=== PATIENT | female | born 1985 ===

== ENCOUNTER 2017-09-04 07:44 | Emergency (ER) | payer MEDICAID, OTHER ==
[2017-09-04 07:44] VITALS: BMI 21.4
[2017-09-04 08:06] VITALS: TEMP 99.3
--- NOTE | 2017-09-04 08:06 | ED PDOC ---
Arrival/HPI - General Historian: Patient - History of Present Illness Time/Duration: < week (started sunday) Symptom Onset: Sudden Symptom Course: Improving Activities at Onset: Rest <Yenny Bales - Last Filed: 09/04/17 08:47> <Randy Jaffe - Last Filed: 09/04/17 08:56> - General Chief Complaint: Cough, Cold, Congestion Time Seen by Provider: 09/04/17 07:50 - History of Present Illness Narrative History of Present Illness (Text): 09/04/17 08:25 Patient presents with cough and fevers starting Sunday08/31/17 (four days ago). Patient took tylenol q4h hours initially and took it q8h once fevers were less frequent. Patient states she has a dry cough, temporal headache when she coughs , no changes in appetite, no nausea, vomiting, hemoptysis, diarrhea, constipation, weakness, numbness, tingling 09/04/17 08:34 (Yenny Balse) Past Medical History - Provider Review Nursing Documentation Reviewed: Yes - Travel History Have you recently traveled outside [place] w/in the past 3 mons?: No - Infectious Disease Hx of Infectious Diseases: None - Cardiac Hx Cardiac Disorders: No - Pulmonary Hx Respiratory Disorders: Yes Hx Asthma: Yes - Neurological Hx Neurological Disorder: No - HEENT Hx HEENT Disorder: No - Renal Hx Renal Disorder: No - Endocrine/Metabolic Hx Endocrine Disorders: No - Hematological/Oncological Hx Blood Disorders: No - Integumentary Hx Dermatological Disorder: No - Musculoskeletal/Rheumatological Hx Musculoskeletal Disorders: No - Gastrointestinal Hx Gastritis: Yes - Genitourinary/Gynecological Hx Genitourinary Disorders: No - Psychiatric Hx Psychophysiologic Disorder: No Hx Substance Use: No - Surgical History Hx Section: Yes (in 2008) - Anesthesia Hx Anesthesia: Yes <Yenny Bales - Last Filed: 09/04/17 08:47> Family/Social History - Physician Review Nursing Documentation Reviewed: Yes Family/Social History: Unknown Family HX Smoking Status: Light Smoker < 10 Cigarettes Daily Hx Alcohol Use: No Hx Substance Use: No <Yenny Bales - Last Filed: 09/04/17 08:47> Allergies/Home Meds <Yenny Bales - Last Filed: 09/04/17 08:47> <Randy Jaffe - Last Filed: 09/04/17 08:56> Allergies/Adverse Reactions: Allergies shellfish derived Allergy (Verified 09/04/17 07:56) ANAPHYLAXIS Home Medications: Home Meds Medication Instructions Recorded Confirmed No Known Home Med 09/04/17 09/04/17 Review of Systems - Physician Review All systems were reviewed & negative as marked: Yes - Review of Systems Constitutional: Fevers. absent: Fatigue, Weight Change Eyes: absent: Vision Changes, Photophobia, Eye Pain ENT: Sinus Congestion. absent: Hearing Changes, Tinnitus, Sore Throat, Rhinorrhea, Epistaxis Respiratory: Cough. absent: SOB, Sputum, Wheezing Cardiovascular: absent: Chest Pain, Palpitations, Edema, Calf Pain Gastrointestinal: absent: Abdominal Pain, Stool Changes, Constipation Genitourinary Female: absent: Dysuria, Frequency, Hematuria Musculoskeletal: absent: Arthralgias, Back Pain, Neck Pain Skin: absent: Rash, Pruritis, Skin Lesions Neurological: absent: Headache, Dizziness, Focal Weakness Endocrine: absent: Diaphoresis, Polyuria, Polydipsia Hemo/Lymphatic: absent: Adenopathy, Easy Bleeding, Easy Bruising Psychiatric: absent: Anxiety, Depression, Suicidal Ideation <Eng,Yenny - Last Filed: 09/04/17 08:47> Physical Exam Vital Signs Reviewed: Yes Temperature: Afebrile Blood Pressure: Normal Pulse: Regular Respiratory Rate: Normal Appearance: Positive for: Well-Appearing, Non-Toxic, Comfortable, Ill-Appearing Mental Status: Positive for: Alert and Oriented X 3 - Systems Exam Head: Present: Atraumatic, Normocephalic Pupils: Present: PERRL Extroacular Muscles: Present: EOMI Conjunctiva: Present: Normal Ears: Present: Normal, NORMAL TM Mouth: Present: Moist Mucous Membranes, Normal Lips. No: Dry, Drooling, Trismus Pharnyx: Present: Normal, ERYTHEMA, EXUDATE Nose (External): Present: Atraumatic. No: Abrasion, Contusion, Laceration Nose (Internal): Present: Edematous, Clear Mucous. No: Septal Deviation Neck: Present: Normal Range of Motion, Trachea Midline. No: MIDLINE TENDERNESS , JVD Respiratory/Chest: Present: Clear to Auscultation, Good Air Exchange, Respiratory Distress Cardiovascular: Present: Regular Rate and Rhythm, Normal S1, S2 Abdomen: Present: Normal Bowel Sounds. No: Tenderness, Distention Upper Extremity: Present: Normal Inspection, Normal ROM, NORMAL PULSES, Capillary Refill < 2s Lower Extremity: Present: Normal Inspection, NORMAL PULSES, Normal ROM, Capillary Refill < 2 s. No: Edema Neurological: Present: GCS=15, CN II-XII Intact, Speech Normal, Motor Func Grossly Intact, Normal Cerebellar Funct, Gait Normal Skin: Present: Warm, Dry, Rashes, Normal Color Psychiatric: Present: Alert, Oriented x 3, Normal Insight, Normal Concentration <Yenny Bales - Last Filed: 09/04/17 08:47> Vital Signs Reviewed: Yes <Randy Jaffe - Last Filed: 09/04/17 08:56> Vital Signs Temp Pulse Resp BP Pulse Ox 09/04/17 07:44 99.3 F 99 H 20 108/72 98 Medical Decision Making Re-evaluation Time: 08:31 Reassessment Condition: Re-examined, Unchanged <Yenny Bales - Last Filed: 09/04/17 08:47> <Randy Jaffe - Last Filed: 09/04/17 08:56> ED Course and Treatment: 09/04/17 08:47 Patient explained likely a viral URI. If she doesn't get better in a few days with supportive care, follow up with primary care doctor for evaluation of possible bacterial infection. Patient does not have a fever at time of visit and did not need treatment for fevers at ER visit (Yenny Bales) 09/04/17 08:39 Patient Seen With Resident: In agreement with resident note which contains more details about the patient. Patient was seen and evaluated with resident. Came up with plan and treatment together. 31 year old female, with no significant past medical history, presents to the emergency department complaining of fever and cough that began 4 days ago. 09/04/17 08:55 Seen and examined with the resident. Our history and physical exam reveals a young woman with a 4 day history of URI symptoms with nasal congestion. No dyspnea. Mild nonproductive cough. Subjective fever. She does not appear ill or toxic. (Randy Jaffe) <Yenny Bales - Last Filed: 09/04/17 08:47> - Scribe Statement The provider has reviewed the documentation as recorded by the Scribe <Randy Jaffe - Last Filed: 09/04/17 08:56> - Scribe Statement Aroldo Child Provider Scribe Attestation: All medical record entries made by the Scribe were at my direction and personally dictated by me. I have reviewed the chart and agree that the record accurately reflects my personal performance of the history, physical exam, medical decision making, and the department course for this patient. I have also personally directed, reviewed, and agree with the discharge instructions and disposition. (Randy Jaffe) Disposition/Present on Arrival - Present on Arrival Any Indicators Present on Arrival: No History of DVT/PE: No History of Uncontrolled Diabetes: No Urinary Catheter: No History Surgical Site Infection Following: None - Disposition Have Diagnosis and Disposition been Completed?: Yes Disposition Time: 08:34 Patient Plan: Discharge <Yenny Bales - Last Filed: 09/04/17 08:47> <Randy Jaffe - Last Filed: 09/04/17 08:56> - Disposition Diagnosis: Viral URI with cough Disposition: HOME/ ROUTINE Patient Problems: Current Active Problems Problem Status Onset Viral URI with cough Acute Condition: GOOD Additional Instructions: continue supportive care (rest, hydration) follow up with primary care doctor as needed. return to ER if symptoms worsen, fevers, chills, nausea vomiting, diarrhea Referrals: Bola Ronquillo Jr., MD [Primary Care Provider] - Follow up with primary Forms: [facility] ([place]), WORK NOTE
[2017-09-04 08:59] VITALS: BP 108/52; PULSE 82; RESP 16; O2SAT 100
== END 2017-09-04 08:59 | disposition home or self-care (01) ==
LOC: ED 07:44
DX: J06.9 Acute upper respiratory infection, unspecified (principal); R05 Cough; F17.210 Nicotine dependence, cigarettes, uncomplicated

== ENCOUNTER 2017-12-27 19:22 | Emergency (ER) | payer SELFPAY ==
[2017-12-27 19:23] VITALS: BMI 21.4
[2017-12-27 19:42] VITALS: RESP 18
[2017-12-27] MEDS ORDERED: Sodium Chloride 0.9% 1,000 ML IV STA (20:20)
[2017-12-27 20:45] LABS: BASO # 0.04 K/mm3 (0.0-2.0); BASO % 0.5 % (0.0-3.0); EOS # 0.1 (0.0-0.7); EOS % 1.7 % (1.5-5.0); GRAN # 5.05 (1.4-6.5); GRAN % 62.8 % (50.0-68.0); HEMOGLOBIN 14.3 g/dL (12.0-16.0); LYMPH % 25.2 % (22.0-35.0); MEAN CELL VOLUME 81.8 fl (80.0-105.0); MEAN CORPUSCULAR HGB CONC 34.2 g/dl (31.0-37.0); MEAN PLATELET VOLUME 9.3 fl (7.0-11.0); MONO # 0.8 (0.1-0.6); MONO % 9.8 % (1.0-6.0); RBC 5.11 10^6/uL (3.5-6.1); RED CELL DISTRIBUTION WIDTH 15.1 % (11.5-14.5); WHITE BLOOD COUNT 8.1 10^3/ul (4.5-11.0)
[2017-12-27 20:50] LABS: URINE BILIRUBIN NEGATIVE (NEGATIVE); URINE BLOOD NEGATIVE (NEGATIVE); URINE GLUCOSE (UA) NEGATIVE (NEGATIVE); URINE LEUKOCYTE ESTERASE NEGATIVE Leu/uL (NEGATIVE); URINE PROTEIN TRACE mg/dL (<30 mg/dL); URINE UROBILINOGEN 0.2 E.U./dL (<1 E.U./dL)
[2017-12-27 20:51] LABS: URINE APPEARANCE CLEAR (CLEAR); URINE COLOR YELLOW (YELLOW)
[2017-12-27 20:53] LABS: ALB/GLOB RATIO 1.4 (1.1-1.8); ALBUMIN 4.9 g/dL (3.0-4.8); ALT/SGPT 32 U/L (7-56); AST/SGOT 31 U/L (14-36); BLOOD UREA NITROGEN 14 mg/dL (7-21); CALCIUM 9.9 mg/dL (8.4-10.5); GFR AFRICAN-AMERICAN > 60; GFR NON-AFRICAN AMERICAN > 60; LIPASE 27 U/L (23-300)
[2017-12-27 20:53] LABS: URINE RBC 0 - 2 /hpf (0-2); URINE WBC 0 - 2 /hpf (0-6)
[2017-12-27 20:54] LABS: URINE BACTERIA MANY (NEG)
--- NOTE | 2017-12-27 21:18 | ED PDOC ---
Arrival/HPI - General Chief Complaint: Abdominal Pain Time Seen by Provider: 12/27/17 19:48 Historian: Patient - History of Present Illness Narrative History of Present Illness (Text): 12/27/17 21:13 32yr old female presents today with suprapubic abdominal pain since yesterday and 3 days of intermittent vomiting. no chest pain or sob. no diarrhea. no fever /chills. pt denies back pain. no urinary symptoms. no vaginal bleeding or vaginal discharge. pts LMP was december 11. pt describes the pain as crampy. no other complaints. Past Medical History - Provider Review Nursing Documentation Reviewed: Yes - Travel History Have you recently traveled outside [place] w/in the past 3 mons?: No - Infectious Disease Hx of Infectious Diseases: None - Reproductive Menopause: No - Cardiac Hx Cardiac Disorders: No - Pulmonary Hx Respiratory Disorders: Yes Hx Asthma: Yes - Neurological Hx Neurological Disorder: No - HEENT Hx HEENT Disorder: No - Renal Hx Renal Disorder: No - Endocrine/Metabolic Hx Endocrine Disorders: No - Hematological/Oncological Hx Blood Disorders: No - Integumentary Hx Dermatological Disorder: No - Musculoskeletal/Rheumatological Hx Musculoskeletal Disorders: No - Gastrointestinal Hx Gastritis: Yes - Genitourinary/Gynecological Hx Genitourinary Disorders: No - Psychiatric Hx Psychophysiologic Disorder: No Hx Substance Use: No - Surgical History Hx Section: Yes (in 2008) - Anesthesia Hx Anesthesia: Yes Family/Social History - Physician Review Nursing Documentation Reviewed: Yes Family/Social History: Unknown Family HX Smoking Status: Light Smoker < 10 Cigarettes Daily Hx Alcohol Use: No Hx Substance Use: No Allergies/Home Meds Allergies/Adverse Reactions: Allergies shellfish derived Allergy (Verified 09/04/17 07:56) ANAPHYLAXIS Review of Systems - Review of Systems Constitutional: absent: Fatigue, Fevers Respiratory: absent: SOB, Cough Cardiovascular: absent: Chest Pain, Palpitations Gastrointestinal: Abdominal Pain, Nausea, Vomiting. absent: Constipation, Diarrhea Genitourinary Female: absent: Dysuria, Frequency, Hematuria, Vaginal Bleeding, Vaginal Discharge Musculoskeletal: absent: Arthralgias, Back Pain, Neck Pain Skin: absent: Rash, Pruritis Neurological: absent: Headache, Dizziness Psychiatric: absent: Anxiety, Depression Physical Exam Vital Signs Reviewed: Yes Vital Signs Temp Pulse Resp BP Pulse Ox 12/27/17 21:31 90 18 105/52 L 100 12/27/17 19:39 98.7 F 89 18 123/83 99 Temperature: Afebrile Blood Pressure: Normal Pulse: Regular Respiratory Rate: Normal Appearance: Positive for: Well-Appearing, Non-Toxic, Comfortable Pain Distress: None Mental Status: Positive for: Alert and Oriented X 3 - Systems Exam Head: Present: Atraumatic Mouth: Present: Moist Mucous Membranes Neck: Present: Normal Range of Motion Respiratory/Chest: Present: Clear to Auscultation, Good Air Exchange. No: Respiratory Distress, Accessory Muscle Use Cardiovascular: Present: Regular Rate and Rhythm, Normal S1, S2. No: Murmurs Abdomen: Present: Tenderness (+ suprapubic tenderness). No: Distention, Peritoneal Signs, Rebound, Guarding Genitourinary/Pelvic Exam: Present: Normal External Genitalia, Cervical os Closed, Other (chaparoned by DRISS Hatfield). No: Vaginal Discharge, Vaginal Bleeding, Vaginal Lesions, Adenexal Tenderness, Adenexal Mass, Cervical Motion Tendernes, Odor Back: Present: Normal Inspection. No: CVA Tenderness, Midline Tenderness, Paraspinal Tenderness Upper Extremity: Present: Normal ROM Lower Extremity: Present: Normal ROM Neurological: Present: GCS=15, Speech Normal Skin: Present: Warm, Dry, Normal Color. No: Rashes Psychiatric: Present: Alert, Oriented x 3 Medical Decision Making ED Course and Treatment: 12/27/17 21:19 Patient is nontoxic well appearing with stable vital signs presenting with lower abdominal pain CBC: wnl CMP: wnl Lipase: wnl Urinalysis wnl Ultrasound: FINDINGS: Uterus/cervix: Unremarkable measuring 9.7 x 5.4 x 6.1 cm. Endometrial thickness measures 1.3 cm. No myometrial mass. Right ovary: Unremarkable measuring 2.5 x 1.9 x 2.9 cm. There is a dominant follicle in the right ovary measuring 1.4 x 0.9 x 1.2 cm. The left ovary measures 1.9 x 1.9 x 2.2 cm. No mass. Normal blood flow. Left ovary: The left ovary measures 1.9 x 1.9 x 2.2 cm and is unremarkable. No mass. Normal blood flow. Free fluid: There There is a very small amount of physiologic free pelvic fluid present. Bladder: Empty bladder which cannot be evaluated with this probe. IMPRESSION: Small physiologic pelvic free fluid. No evidence of ovarian torsion. CAT scan: FINDINGS: Lung bases: Unremarkable. No mass. No consolidation. ABDOMEN: Liver: The liver is within normal limits for this noncontrast study. Gallbladder and bile ducts: Unremarkable. No calcified stones. No ductal dilation. Pancreas: Unremarkable. No ductal dilation. Spleen: Unremarkable. No splenomegaly. Adrenals: Unremarkable. No mass. Kidneys and ureters: Unremarkable. No obstructing stones. No hydronephrosis. Stomach and bowel: Unremarkable. No obstruction. No mucosal thickening. PELVIS: Appendix: No findings to suggest acute appendicitis. Normal appendix. Bladder: Unremarkable. No stones. Reproductive: Unremarkable as visualized. ABDOMEN and PELVIS: Intraperitoneal space: Unremarkable. No free air. No significant fluid collection. Bones/joints: No acute fracture. No dislocation. Soft tissues: Unremarkable. Vasculature: Unremarkable. No abdominal aortic aneurysm. Lymph nodes: Unremarkable. No enlarged lymph nodes. IMPRESSION: Unremarkable abdomen and pelvis CT. Gc and chylamdia cultures pending. Patient reassessment: pt is non toxic well appearing; no distress. stable vitals. Discussed all results with patient in depth. advised f/u with contract accountant and PMD and GI specialist; advised immediate return if symptoms worsen,persist or if new symptoms Patient verbalizes understanding of discharge instructions and need for immediate followup. all aspects of this case were discussed the attending of record. Impression: Abdominal pain, uti Keflex; 1 capsule twice daily x 7 days. Motrin every 6 hours as needed for pain Follow up with primary care physician within the next 2 days Follow up with the GI specialist within the next 2 days Follow up with the ADULT EDUCATION MANAGER within the next 2 days Return immediately if symptoms worsen persist or if new symptoms develop: High fevers, increasing pain, vomiting, diarrhea or any other concerning symptoms develop 12/27/17 23:32 Reassessment Condition: Re-examined, Improved - Lab Interpretations Lab Results: 12/27/17 20:39 12/27/17 20:39 Lab Results 12/27/17 20:39: WBC 8.1, RBC 5.11, Hgb 14.3, Hct 41.8, MCV 81.8, MCH 28.0, MCHC 34.2, RDW 15.1 H, Plt Count 305, MPV 9.3, Gran % 62.8, Lymph % (Auto) 25.2, Todd % (Auto) 9.8 H, Eos % (Auto) 1.7, Baso % (Auto) 0.5, Gran # 5.05, Lymph # ( Auto) 2.0, Todd # (Auto) 0.8 H, Eos # (Auto) 0.1, Baso # (Auto) 0.04 12/27/17 20:39: Sodium 142, Potassium 4.2, Chloride 103, Carbon Dioxide 24, Anion Gap 19, BUN 14, Creatinine 0.5 L, Est GFR ( Amer) > 60, Est GFR ( Non-Af Amer) > 60, Random Glucose 94, Calcium 9.9, Total Bilirubin 0.7, AST 31, ALT 32, Alkaline Phosphatase 77, Total Protein 8.4 H, Albumin 4.9 H, Globulin 3.5, Albumin/Globulin Ratio 1.4, Lipase 27 12/27/17 20:10: Urine Color Yellow, Urine Appearance Clear, Urine pH 6.0, Ur Specific Bradner 1.025, Urine Protein Trace H, Urine Glucose (UA) Negative, Urine Ketones 15 H, Urine Blood Negative, Urine Nitrate Negative, Urine Bilirubin Negative, Urine Urobilinogen 0.2, Ur Leukocyte Esterase Negative, Urine RBC 0 - 2, Urine WBC 0 - 2, Ur Epithelial Cells 6 - 8, Urine Bacteria Many - RAD Interpretation Radiology Orders: 12/27/17 20:50 TRANSVAGINAL [US] Stat 12/27/17 22:26 ABD & PELVIS W/O PO OR IV CONT [CT] Stat - Medication Orders Current Medication Orders: Discontinued Medications Sodium Chloride (Sodium Chloride 0.9%) 1,000 mls @ 999 mls/hr IV .Q1H1M STA Stop: 12/27/17 21:20 Last Admin: 12/27/17 20:40 Dose: 999 mls/hr eMAR Start Stop Document 12/27/17 20:40 LIU (Rec: 12/27/17 20:47 LIU [id number]) Intravenous Solution Start Date 12/27/17 Start Time 20:40 Disposition/Present on Arrival - Present on Arrival Any Indicators Present on Arrival: No History of DVT/PE: No History of Uncontrolled Diabetes: No Urinary Catheter: No History of Decub. Ulcer: No History Surgical Site Infection Following: None - Disposition Have Diagnosis and Disposition been Completed?: Yes Diagnosis: Abdominal pain Disposition: HOME/ ROUTINE Disposition Time: 22:48 Patient Plan: Other (AMA) Patient Problems: Current Active Problems Problem Status Onset Abdominal pain Acute Condition: FAIR Discharge Instructions (ExitCare): Acute Abdomen (Belly Pain), Adult (DC) Additional Instructions: Keflex; 1 capsule twice daily x7 days Motrin every 6 hours as needed for pain Follow up with primary care physician within the next 2 days Follow up with the GI specialist within the next 2 days Follow up with the ADULT EDUCATION MANAGER within the next 2 days Return immediately if symptoms worsen persist or if new symptoms develop: High fevers, increasing pain, vomiting, diarrhea or any other concerning symptoms develop Prescriptions: Cephalexin [Keflex] 500 mg PO BID #14 capsule Referrals: Bola Ronquillo Jr., MD [Primary Care Provider] - Follow up with primary Nicolas Andujar MD [Staff Provider] - Follow up with primary Bryson Torrez MD [Medical Doctor] - Follow up with primary Forms: [facility] (Japanese), WORK NOTE
[2017-12-27 21:32] VITALS: O2SAT 100
--- NOTE | 2017-12-27 23:18 | CT ---
EXAM: CT Abdomen and Pelvis Without Intravenous Contrast CLINICAL HISTORY: 32 years old, female; Pain; Abdominal pain; Prior surgery; Surgery type: TECHNIQUE: Axial computed tomography images of the abdomen and pelvis without intravenous contrast. All CT scans at this facility use one or more dose reduction techniques, viz.: automated exposure control; ma/kV adjustment per patient size (including targeted exams where dose is matched to indication; i.e. head); or iterative reconstruction technique. Coronal and sagittal reformatted images were created and reviewed. COMPARISON: CT - ABD PELVIS W/O PO OR IV CONT 2016-04-15 12:25 FINDINGS: Lung bases: Unremarkable. No mass. No consolidation. ABDOMEN: Liver: The liver is within normal limits for this noncontrast study. Gallbladder and bile ducts: Unremarkable. No calcified stones. No ductal dilation. Pancreas: Unremarkable. No ductal dilation. Spleen: Unremarkable. No splenomegaly. Adrenals: Unremarkable. No mass. Kidneys and ureters: Unremarkable. No obstructing stones. No hydronephrosis. Stomach and bowel: Unremarkable. No obstruction. No mucosal thickening. PELVIS: Appendix: No findings to suggest acute appendicitis. Normal appendix. Bladder: Unremarkable. No stones. Reproductive: Unremarkable as visualized. ABDOMEN and PELVIS: Intraperitoneal space: Unremarkable. No free air. No significant fluid collection. Bones/joints: No acute fracture. No dislocation. Soft tissues: Unremarkable. Vasculature: Unremarkable. No abdominal aortic aneurysm. Lymph nodes: Unremarkable. No enlarged lymph nodes. IMPRESSION: Unremarkable abdomen and pelvis CT.
--- NOTE | 2017-12-27 23:23 | US ---
EXAM: US Pelvis, Transvaginal CLINICAL HISTORY: 32 years old, female; Pain; Pelvic pain TECHNIQUE: Real-time transvaginal pelvic ultrasound (complete) with image documentation. Transvaginal imaging was used for better evaluation of the endometrium and adnexa. COMPARISON: US - TRANSVAGINAL 2016-07-04 07:31 FINDINGS: Uterus/cervix: Unremarkable measuring 9.7 x 5.4 x 6.1 cm. Endometrial thickness measures 1.3 cm. No myometrial mass. Right ovary: Unremarkable measuring 2.5 x 1.9 x 2.9 cm. There is a dominant follicle in the right ovary measuring 1.4 x 0.9 x 1.2 cm. The left ovary measures 1.9 x 1.9 x 2.2 cm. No mass. Normal blood flow. Left ovary: The left ovary measures 1.9 x 1.9 x 2.2 cm and is unremarkable. No mass. Normal blood flow. Free fluid: There There is a very small amount of physiologic free pelvic fluid present. Bladder: Empty bladder which cannot be evaluated with this probe. IMPRESSION: Small physiologic pelvic free fluid. No evidence of ovarian torsion.
[2017-12-27 23:48] VITALS: BP 116/49; PULSE 89; TEMP 98.5
== END 2017-12-27 23:40 | disposition home or self-care (01) ==
LOC: ED 19:22
DX: R10.9 Unspecified abdominal pain (principal)
CPT/HCPCS: 74176; 76830; 80053; 81001; 83690; 85025; 87086; 87491; 87591; 99284; J7030

== ENCOUNTER 2018-02-25 23:24 | Emergency (ER) | payer SELFPAY ==
[2018-02-25 23:42] VITALS: BMI 23.8
[2018-02-26] MEDS ORDERED: Naproxen 550 mg Tab PO STA (01:36)
--- NOTE | 2018-02-26 01:37 | ED PDOC ---
Arrival/HPI - General Chief Complaint: Finger,Hand,&Wrist Time Seen by Provider: 02/25/18 23:44 Historian: Patient - History of Present Illness Narrative History of Present Illness (Text): 02/26/18 01:33 32 yo F reports injury to the R 3rd digit 2 weeks ago, since then has had continued pain and swelling with difficulty with ROM of the finger. Denies any numbness, or any other injury. Past Medical History - Infectious Disease Hx of Infectious Diseases: None - Cardiac Hx Cardiac Disorders: No - Pulmonary Hx Respiratory Disorders: Yes Hx Asthma: Yes - Neurological Hx Neurological Disorder: No - HEENT Hx HEENT Disorder: No - Renal Hx Renal Disorder: No - Endocrine/Metabolic Hx Endocrine Disorders: No - Hematological/Oncological Hx Blood Disorders: No - Integumentary Hx Dermatological Disorder: No - Musculoskeletal/Rheumatological Hx Musculoskeletal Disorders: No - Gastrointestinal Hx Gastritis: Yes - Genitourinary/Gynecological Hx Genitourinary Disorders: No - Psychiatric Hx Psychophysiologic Disorder: No Hx Substance Use: No - Surgical History Hx Section: Yes (in 2008) - Anesthesia Hx Anesthesia: Yes Family/Social History Family/Social History: No Known Family HX Smoking Status: Light Smoker < 10 Cigarettes Daily Hx Alcohol Use: No Hx Substance Use: No Allergies/Home Meds Allergies/Adverse Reactions: Allergies shellfish derived Allergy (Verified 02/25/18 23:52) ANAPHYLAXIS Review of Systems - Review of Systems Constitutional: absent: Fatigue, Weight Change, Fevers Musculoskeletal: Arthralgias. absent: Back Pain, Neck Pain Skin: absent: Rash, Pruritis, Skin Lesions Physical Exam Temperature: Afebrile Blood Pressure: Normal Pulse: Regular Respiratory Rate: Normal Appearance: Positive for: Well-Appearing, Non-Toxic, Comfortable Pain Distress: None Mental Status: Positive for: Alert and Oriented X 3 - Systems Exam Upper Extremity: Present: Normal ROM, NORMAL PULSES, Neurovascularly Intact, Capillary Refill < 2s, Norm 2-Pt Discrimination, Other (R 3rd digit : + tenderness and edema to the proximal phalaxnx, pt unable to fully extend or flex digit at the DIP. ). No: Edema, Tenderness, Swelling, Erythema, Temperature Abnormalties Medical Decision Making ED Course and Treatment: 02/26/18 01:35 Plan : - XR R 3rd digit - Naprosyn PO XR R 3rd digit: +fracture of mid phalanx, no dislocation, as read by PA. X-ray results discussed with the patient in great detail. Orthoglass finger splint applied. Neurovascular intact post splint application. Patient instructed to follow-up with orthopedic referral provided in 1-2 days without fail. Advised to take medication as prescribed. Rest, ice and elevate the joint. Return to the emergency room at any time for any new or worsening symptoms. Patient states she fully agrees with and understands discharge instructions. States that she agrees with the plan and disposition. Verbalized and repeated discharge instructions and plan. I have given the patient opportunity to ask any additional questions. - RAD Interpretation Radiology Orders: 02/25/18 23:44 HAND RIGHT 3RD DIGIT (FINGER) [RAD] Stat - Medication Orders Current Medication Orders: Discontinued Medications Naproxen (Anaprox Ds) 550 mg PO ONCE STA Stop: 02/26/18 01:37 - PA / RADIATION CONTROL WORKER / Resident Statement / has reviewed & agrees with the documentation as recorded. Disposition/Present on Arrival - Present on Arrival Any Indicators Present on Arrival: No History of DVT/PE: No History of Uncontrolled Diabetes: No Urinary Catheter: No History of Decub. Ulcer: No History Surgical Site Infection Following: None - Disposition Have Diagnosis and Disposition been Completed?: Yes Diagnosis: Finger fracture, right Disposition: HOME/ ROUTINE Disposition Time: 02:00 Patient Plan: Discharge Condition: STABLE Discharge Instructions (ExitCare): Finger Fracture (DC) Additional Instructions: Thank you for letting us take care of you today. You were treated for R 3rd digit injury. The emergency medical care you received today was directed at your acute symptoms. If you were prescribed any medication, please fill it and take as directed. It may take several days for your symptoms to resolve. Return to the Emergency Department if your symptoms worsen, do not improve, or if you have any other problems. Please call one of the physicians/clinics you have been referred to that are listed on the Patient Visit Information form that is included in your discharge packet. Bring any paperwork you were given at discharge with you along with any medications you are taking to your follow up visit. Our treatment cannot replace ongoing medical care by a primary care provider (PCP) outside of the emergency department. Thank you for allowing the [facility] team to be part of your care today. If you had an X-Ray : A Radiologist will review the ED reading if any change in treatment is needed we will contact you. Prescriptions: Naproxen 500 mg PO BID PRN #20 tablet PRN Reason: Pain, Moderate (4-7) Referrals: Isreal Suarez DO [Staff Provider] - Follow up with primary Forms: [facility] ([place]ori), WORK NOTE
[2018-02-26 02:50] VITALS: BP 121/69; PULSE 81; RESP 16; TEMP 97.9; O2SAT 99
--- NOTE | 2018-02-26 07:53 | RAD ---
Date of service: 02/26/2018 PROCEDURE: Right middle finger radiographs. HISTORY: pain COMPARISON: None. TECHNIQUE: AP radiograph of the right hand, as well as spot oblique and lateral images of right middle finger were obtained. FINDINGS: RIGHT MIDDLE FINGER: An oblique complete fracture -3rd middle phalanx with 1 mm distraction the fracture fragment ends is present. No apical angulation deformity. No intra-articular joint extension. No dislocation. JOINTS: Normal. SOFT TISSUES: Mild soft tissue swelling. OTHER FINDINGS: No radiopaque foreign body appreciated IMPRESSION: Complete fracture -not significantly displaced -as above
== END 2018-02-26 02:02 | disposition home or self-care (01) ==
LOC: ED 23:24
DX: S62.602A Fracture of unspecified phalanx of right middle finger, initial encounter for closed fracture (principal); X58.XXXA Exposure to other specified factors, initial encounter; Y92.9 Unspecified place or not applicable

== ENCOUNTER 2018-03-23 11:45 | Emergency (ER) | payer OTHER ==
[2018-03-23 11:46] VITALS: BMI 23.8
[2018-03-23 12:00] VITALS: RESP 18; TEMP 99; O2SAT 99
[2018-03-23 12:51] LABS: BASO # 0.04 K/mm3 (0.0-2.0); BASO % 0.6 % (0.0-3.0); EOS # 0.2 (0.0-0.7); EOS % 2.9 % (1.5-5.0); GRAN # 4.62 (1.4-6.5); GRAN % 66.6 % (50.0-68.0); LYMPH # 1.7 (1.2-3.4); LYMPH % 23.8 % (22.0-35.0); MEAN CELL VOLUME 82.8 fl (80.0-105.0); MEAN CORPUSCULAR HEMOGLOBIN 27.1 pg (25.0-35.0); MEAN CORPUSCULAR HGB CONC 32.7 g/dl (31.0-37.0); MEAN PLATELET VOLUME 9.7 fl (7.0-11.0); MONO # 0.4 (0.1-0.6); MONO % 6.1 % (1.0-6.0); RBC 4.43 10^6/uL (3.5-6.1); RED CELL DISTRIBUTION WIDTH 14.2 % (11.5-14.5); URINE BILIRUBIN NEGATIVE (NEGATIVE); URINE BLOOD TRACE-INTACT (NEGATIVE); URINE GLUCOSE (UA) NEGATIVE (NEGATIVE); URINE LEUKOCYTE ESTERASE NEGATIVE Leu/uL (NEGATIVE); URINE PROTEIN NEGATIVE mg/dL (<30 mg/dL); URINE UROBILINOGEN 0.2 E.U./dL (<1 E.U./dL); WHITE BLOOD COUNT 6.9 10^3/ul (4.5-11.0)
[2018-03-23 12:52] LABS: URINE COLOR YELLOW (YELLOW)
[2018-03-23 12:53] LABS: URINE APPEARANCE SLIGHT-CLOUDY (CLEAR)
--- NOTE | 2018-03-23 12:57 | ED PDOC ---
Arrival/HPI - General Chief Complaint: Abdominal Pain Time Seen by Provider: 03/23/18 12:10 Historian: Patient - History of Present Illness Narrative History of Present Illness (Text): 03/23/18 12:55 32-year-old female presents today with lower abdominal cramping since today. She denies vaginal bleeding or vaginal discharge. She denies nausea vomiting diarrhea or constipation. She denies chest pain or shortness of breath. Patient states her last menstrual period was February 08 and recently she found out that she was . She is complaining of slight lower back pain. Denies dysuria or urinary frequency. Denies dizziness or weakness. No other complaints Past Medical History - Provider Review Nursing Documentation Reviewed: Yes - Travel History Have you recently traveled outside [place] w/in the past 3 mons?: No - Infectious Disease Hx of Infectious Diseases: None - Reproductive Menopause: No - Cardiac Hx Cardiac Disorders: No - Pulmonary Hx Respiratory Disorders: Yes Hx Asthma: Yes - Neurological Hx Neurological Disorder: No - HEENT Hx HEENT Disorder: No - Renal Hx Renal Disorder: No - Endocrine/Metabolic Hx Endocrine Disorders: No - Hematological/Oncological Hx Blood Disorders: No - Integumentary Hx Dermatological Disorder: No - Musculoskeletal/Rheumatological Hx Musculoskeletal Disorders: No - Gastrointestinal Hx Gastritis: Yes - Genitourinary/Gynecological Hx Genitourinary Disorders: No - Psychiatric Hx Psychophysiologic Disorder: No Hx Substance Use: No - Surgical History Hx Section: Yes (in 2008) - Anesthesia Hx Anesthesia: Yes Family/Social History - Physician Review Nursing Documentation Reviewed: Yes Family/Social History: Unknown Family HX Smoking Status: Light Smoker < 10 Cigarettes Daily Hx Alcohol Use: No Hx Substance Use: No Allergies/Home Meds Allergies/Adverse Reactions: Allergies shellfish derived Allergy (Verified 03/23/18 12:00) ANAPHYLAXIS Home Medications: Home Meds Medication Instructions Recorded Confirmed No Known Home Med 03/23/18 03/23/18 Review of Systems - Review of Systems Constitutional: absent: Fatigue, Fevers Respiratory: absent: SOB, Cough Cardiovascular: absent: Chest Pain, Palpitations Gastrointestinal: Abdominal Pain. absent: Constipation, Diarrhea, Nausea, Vomiting Genitourinary Female: absent: Dysuria, Frequency, Hematuria, Vaginal Bleeding, Vaginal Discharge Musculoskeletal: Back Pain. absent: Arthralgias, Neck Pain Skin: absent: Rash, Pruritis Neurological: absent: Headache, Dizziness Psychiatric: absent: Anxiety, Depression Physical Exam Vital Signs Reviewed: Yes Vital Signs Temp Pulse Resp BP Pulse Ox 03/23/18 11:56 99 F 80 18 107/64 99 Temperature: Afebrile Blood Pressure: Normal Pulse: Regular Respiratory Rate: Normal Appearance: Positive for: Well-Appearing, Non-Toxic, Comfortable Pain Distress: None Mental Status: Positive for: Alert and Oriented X 3 - Systems Exam Head: Present: Atraumatic Mouth: Present: Moist Mucous Membranes Neck: Present: Normal Range of Motion Respiratory/Chest: Present: Clear to Auscultation, Good Air Exchange. No: Respiratory Distress, Accessory Muscle Use Cardiovascular: Present: Regular Rate and Rhythm, Normal S1, S2. No: Murmurs Abdomen: No: Tenderness, Distention, Peritoneal Signs, Rebound, Guarding Genitourinary/Pelvic Exam: Present: Normal External Genitalia, Cervical os Closed, Other (chaparone by BETO romeo). No: Vaginal Discharge, Vaginal Bleeding, Vaginal Lesions, Adenexal Tenderness, Adenexal Mass, Cervical Motion Tendernes, Odor Back: Present: Normal Inspection. No: CVA Tenderness, Midline Tenderness, Paraspinal Tenderness Upper Extremity: Present: Normal ROM Lower Extremity: Present: Normal ROM. No: Edema Neurological: Present: GCS=15, Speech Normal Skin: Present: Warm, Dry, Normal Color. No: Rashes Psychiatric: Present: Alert, Oriented x 3 Medical Decision Making ED Course and Treatment: 03/23/18 12:57 Patient is nontoxic well appearing in no distress. vital signs are stable. CBC: wnl CMP: wnl Beta hCG: TYPE AND SCREEN: Urinalysis:wnl Ultrasound: FINDINGS: UTERUS: Single Live intrauterine gestation. Gestational sac diameter measures 0.74 cm too small to characterize gestational age. Yolk sac and pole are not visualized. [place]-gestational hemorrhage: None. Uterus measures 8.6 x 5.3 x 6.5 cm. No mass CERVIX: Long and closed. No cervical abnormality seen. RIGHT OVARY: Measures 2.1 x 1.1 x 1.1 cm. No mass. Normal flow. LEFT OVARY: Measures 3.4 x 1.9 x 2.4 cm. No mass. Normal flow. There is a 0.7 x 0.6 x 0.7 cm simple cyst and 1.6 x 1.2 x 0.8 cm simple cyst. FREE FLUID: None. OTHER FINDINGS: None. IMPRESSION: Single intrauterine gestational sac too small to characterize gestational age. Yolk sac and pole are not visualized on the current examination. Clinical follow-up and follow-up imaging is recommended to assess viable . Discussed all the results the patient. pt with LMP february 08. which would place the patient about 5 weeks . advised patient that she will need to monitor beta and f/u US. advised patient of possible early vs miscarriage. stressed importance of close f/u. advised f/u with the clearing distribution clerk within the next 2 days. advised immediate return if symptoms worsen,persist or if new symptoms develop. Patient verbalizes understanding of discharge instructions and need for immediate followup. all aspects of this case were discussed the attending of record. Impression: threatened Tylenol every 4 hours as needed for pain Increase fluids Followup with the veterinary pharmacologist within the next 2 days Return immediately if symptoms worsen persist or if new symptoms develop: High fevers, heavy bleeding, severe abdominal pain, vomiting, diarrhea, dizziness or weakness or any other concerning symptoms develop. continue to take vitamins daily - Lab Interpretations Lab Results: 03/23/18 12:40 03/23/18 12:40 Lab Results 03/23/18 13:40: Blood Type Confirm O POSITIVE 03/23/18 13:00: Blood Type O POSITIVE, Antibody Screen Negative, BBK History Checked No verified bt 03/23/18 12:40: WBC 6.9, RBC 4.43, Hgb 12.0 D, Hct 36.7, MCV 82.8, MCH 27.1, MCHC 32.7, RDW 14.2, Plt Count 292, MPV 9.7, Gran % 66.6, Lymph % (Auto) 23.8, [place] % (Auto) 6.1 H, Eos % (Auto) 2.9, Baso % (Auto) 0.6, Gran # 4.62, Lymph # ( Auto) 1.7, [place] # (Auto) 0.4, Eos # (Auto) 0.2, Baso # (Auto) 0.04 03/23/18 12:40: Beta HCG, Quant 18527.00 H 03/23/18 12:40: Sodium 139, Potassium 4.0, Chloride 104, Carbon Dioxide 24, Anion Gap 15, BUN 15, Creatinine 0.6 L, Est GFR ( Amer) > 60, Est GFR ( Non-Af Amer) > 60, Random Glucose 116 H, Calcium 8.7, Total Bilirubin 0.4, AST 24, ALT 19, Alkaline Phosphatase 70, Total Protein 7.0, Albumin 4.0, Globulin 3.0, Albumin/Globulin Ratio 1.3 03/23/18 12:40: Urine Color Yellow, Urine Appearance Slight-cloudy, Urine pH 6.0 , Ur Specific [place] >= 1.030, Urine Protein Negative, Urine Glucose (UA) Negative, Urine Ketones Negative, Urine Blood Trace-intact H, Urine Nitrate Negative, Urine Bilirubin Negative, Urine Urobilinogen 0.2, Ur Leukocyte Esterase Negative, Urine RBC 0 - 2, Urine WBC 1 - 3, Ur Epithelial Cells Many - RAD Interpretation Radiology Orders: 03/23/18 12:10 OB TRANSVAGINAL [US] Stat Disposition/Present on Arrival - Present on Arrival Any Indicators Present on Arrival: No History of DVT/PE: No History of Uncontrolled Diabetes: No Urinary Catheter: No History of Decub. Ulcer: No History Surgical Site Infection Following: None - Disposition Have Diagnosis and Disposition been Completed?: Yes Diagnosis: Threatened Disposition: HOME/ ROUTINE Disposition Time: 14:12 Patient Plan: Discharge Patient Problems: Current Active Problems Problem Status Onset Threatened Acute Condition: GOOD Discharge Instructions (ExitCare): Threatened Miscarriage (DC) Additional Instructions: Tylenol every 4 hours as needed for pain Increase fluids Followup with the veterinary pharmacologist within the next 2 days Return immediately if symptoms worsen persist or if new symptoms develop: High fevers, heavy bleeding, severe abdominal pain, vomiting, diarrhea, dizziness or weakness or any other concerning symptoms develop. continue to take vitamins daily Referrals: Kyle Chow [Medical Doctor] - [facility] [Outside] - Follow up with primary Perla Harman MD [Medical Doctor] - Follow up with primary [facility] [Outside] - Follow up with primary Forms: [employer] (Cro[place]ian), WORK NOTE
[2018-03-23 13:26] LABS: ALB/GLOB RATIO 1.3 (1.1-1.8); ALT/SGPT 19 U/L (7-56); AST/SGOT 24 U/L (14-36); BLOOD UREA NITROGEN 15 mg/dL (7-21); CALCIUM 8.7 mg/dL (8.4-10.5); GFR NON-AFRICAN AMERICAN > 60
[2018-03-23 13:33] LABS: URINE EPITHELIAL CELLS MANY /hpf (0-5); URINE RBC 0 - 2 /hpf (0-2)
--- NOTE | 2018-03-23 13:50 | US ---
Date of service: 03/23/2018 PROCEDURE: OB Pelvic Ultrasound HISTORY: pain COMPARISON: None available. FINDINGS: UTERUS: Single Live intrauterine gestation. Gestational sac diameter measures 0.74 cm too small to characterize gestational age. Yolk sac and pole are not visualized. [place]-gestational hemorrhage: None. Uterus measures 8.6 x 5.3 x 6.5 cm. No mass CERVIX: Long and closed. No cervical abnormality seen. RIGHT OVARY: Measures 2.1 x 1.1 x 1.1 cm. No mass. Normal flow. LEFT OVARY: Measures 3.4 x 1.9 x 2.4 cm. No mass. Normal flow. There is a 0.7 x 0.6 x 0.7 cm simple cyst and 1.6 x 1.2 x 0.8 cm simple cyst. FREE FLUID: None. OTHER FINDINGS: None. IMPRESSION: Single intrauterine gestational sac too small to characterize gestational age. Yolk sac and pole are not visualized on the current examination. Clinical follow-up and follow-up imaging is recommended to assess viable .
[2018-03-23 14:19] VITALS: BP 110/72; PULSE 72
== END 2018-03-23 14:29 | disposition home or self-care (01) ==
LOC: ED 11:45
DX: O20.0 Threatened abortion (principal); F17.210 Nicotine dependence, cigarettes, uncomplicated; Z3A.01 Less than 8 weeks gestation of pregnancy

== ENCOUNTER 2018-03-26 12:52 | Emergency (ER) | payer MEDICAID, OTHER ==
[2018-03-26 13:03] VITALS: BMI 23.4
[2018-03-26 13:06] VITALS: RESP 18
[2018-03-26 13:51] LABS: BASO # 0.02 K/mm3 (0.0-2.0); BASO % 0.3 % (0.0-3.0); EOS # 0.2 (0.0-0.7); EOS % 2.5 % (1.5-5.0); GRAN # 5.09 (1.4-6.5); GRAN % 66.8 % (50.0-68.0); HEMOGLOBIN 12.3 g/dL (12.0-16.0); LYMPH # 1.8 (1.2-3.4); LYMPH % 23.6 % (22.0-35.0); MEAN CELL VOLUME 82.9 fl (80.0-105.0); MEAN CORPUSCULAR HEMOGLOBIN 27.6 pg (25.0-35.0); MEAN CORPUSCULAR HGB CONC 33.3 g/dl (31.0-37.0); MEAN PLATELET VOLUME 9.1 fl (7.0-11.0); MONO # 0.5 (0.1-0.6); MONO % 6.8 % (1.0-6.0); RBC 4.45 10^6/uL (3.5-6.1); RED CELL DISTRIBUTION WIDTH 14.4 % (11.5-14.5); WHITE BLOOD COUNT 7.6 10^3/ul (4.5-11.0)
[2018-03-26 13:52] LABS: URINE BILIRUBIN NEGATIVE (NEGATIVE); URINE BLOOD TRACE-INTACT (NEGATIVE); URINE GLUCOSE (UA) NEGATIVE (NEGATIVE); URINE LEUKOCYTE ESTERASE NEGATIVE Leu/uL (NEGATIVE); URINE PROTEIN NEGATIVE mg/dL (<30 mg/dL); URINE UROBILINOGEN 0.2 E.U./dL (<1 E.U./dL)
[2018-03-26 13:55] LABS: URINE APPEARANCE CLEAR (CLEAR); URINE COLOR YELLOW (YELLOW)
[2018-03-26 13:59] LABS: ALB/GLOB RATIO 1.4 (1.1-1.8); ALBUMIN 4.1 g/dL (3.0-4.8); ALT/SGPT 19 U/L (7-56); AST/SGOT 22 U/L (14-36); BLOOD UREA NITROGEN 13 mg/dL (7-21); GFR NON-AFRICAN AMERICAN > 60; LIPASE 24 U/L (23-300)
[2018-03-26 14:07] LABS: URINE BACTERIA FEW (NEG); URINE RBC 0 - 2 /hpf (0-2); URINE WBC 0 - 2 /hpf (0-6)
[2018-03-26] MEDS ORDERED: Sodium Chloride 0.9% 1,000 ML IV STA (15:13)
[2018-03-26 16:48] VITALS: BP 112/64; PULSE 84; O2SAT 100
--- NOTE | 2018-03-26 17:06 | ED PDOC ---
Arrival/HPI - General Chief Complaint: Fever Time Seen by Provider: 03/26/18 13:05 Historian: Patient - History of Present Illness Narrative History of Present Illness (Text): 03/26/18 17:06 32yr old female who is approximately 6 weeks presents today with nausea and feeling feverish. pt denies cp or sob. no vomiting. no urinary symptoms. pt denies abdominal pain. pt states she didnt take her temperature at home, but feels feverish. no medications have been taken at home. pt denies vaginal bleeding. denies vaginal discharge. pt denies dizziness. no other complaints. Past Medical History - Provider Review Nursing Documentation Reviewed: Yes - Travel History Have you recently traveled outside [place] w/in the past 3 mons?: No - Infectious Disease Hx of Infectious Diseases: None - Cardiac Hx Cardiac Disorders: No - Pulmonary Hx Respiratory Disorders: Yes Hx Asthma: Yes - Neurological Hx Neurological Disorder: No - HEENT Hx HEENT Disorder: No - Renal Hx Renal Disorder: No - Endocrine/Metabolic Hx Endocrine Disorders: No - Hematological/Oncological Hx Blood Disorders: No - Integumentary Hx Dermatological Disorder: No - Musculoskeletal/Rheumatological Hx Musculoskeletal Disorders: No - Gastrointestinal Hx Gastritis: Yes - Genitourinary/Gynecological Hx Genitourinary Disorders: No - Psychiatric Hx Psychophysiologic Disorder: No Hx Substance Use: No - Surgical History Hx Section: Yes (in 2008) - Anesthesia Hx Anesthesia: Yes Family/Social History - Physician Review Nursing Documentation Reviewed: Yes Family/Social History: Unknown Family HX Smoking Status: Light Smoker < 10 Cigarettes Daily Hx Alcohol Use: No Hx Substance Use: No Allergies/Home Meds Allergies/Adverse Reactions: Allergies shellfish derived Allergy (Verified 03/23/18 12:00) ANAPHYLAXIS Review of Systems - Review of Systems Constitutional: absent: Fatigue, Fevers Respiratory: absent: SOB, Cough Cardiovascular: absent: Chest Pain, Palpitations Gastrointestinal: Nausea. absent: Abdominal Pain, Constipation, Diarrhea, Vomiting Genitourinary Female: absent: Dysuria, Frequency, Hematuria, Urine Output Changes, Vaginal Bleeding, Vaginal Discharge Musculoskeletal: absent: Arthralgias Skin: absent: Rash, Pruritis Neurological: absent: Headache, Dizziness Psychiatric: absent: Anxiety, Depression Physical Exam Vital Signs Reviewed: Yes Vital Signs Temp Pulse Resp BP Pulse Ox 03/26/18 16:47 84 18 112/64 100 03/26/18 13:06 99.3 F 78 18 118/63 98 Temperature: Afebrile Blood Pressure: Normal Pulse: Regular Respiratory Rate: Normal Appearance: Positive for: Well-Appearing, Non-Toxic, Comfortable Pain Distress: None Mental Status: Positive for: Alert and Oriented X 3 - Systems Exam Head: Present: Atraumatic Mouth: Present: Moist Mucous Membranes Neck: Present: Normal Range of Motion Respiratory/Chest: Present: Clear to Auscultation, Good Air Exchange. No: Respiratory Distress, Accessory Muscle Use Cardiovascular: Present: Regular Rate and Rhythm, Normal S1, S2. No: Murmurs Abdomen: No: Tenderness, Distention, Peritoneal Signs, Rebound, Guarding Genitourinary/Pelvic Exam: Present: Normal External Genitalia. No: Vaginal Bleeding, Vaginal Lesions Back: Present: Normal Inspection. No: CVA Tenderness, Midline Tenderness, Paraspinal Tenderness Upper Extremity: Present: Normal ROM Lower Extremity: Present: Normal ROM Neurological: Present: GCS=15, Speech Normal Skin: Present: Warm, Dry, Normal Color. No: Rashes Psychiatric: Present: Alert, Oriented x 3 Medical Decision Making ED Course and Treatment: 03/26/18 17:20 Patient is nontoxic well appearing in no distress. CBC: wnl CMP: wnl Beta hC which is increasing from 03/23 which it was 10,042 Urinalysis:+ trace blood; no leukocytes Discussed all the results the patient. advised f/u with the gynecology teacher within the next 2 days. advised immediate return if symptoms worsen,persist or if new symptoms develop. Patient verbalizes understanding of discharge instructions and need for immediate followup. all aspects of this case were discussed the attending of record. Impression: nausea, + Increase fluids Followup with the EDUCATION AND OUTREACH COORDINATOR within the next 2 days Return immediately if symptoms worsen persist or if new symptoms develop: High fevers, heavy bleeding, severe abdominal pain, vomiting, diarrhea, dizziness or weakness or any other concerning symptoms develop. Continue vitamins daily Reassessment Condition: Re-examined, Improved - Lab Interpretations Lab Results: 03/26/18 13:30 03/26/18 13:30 Lab Results 03/26/18 13:30: WBC 7.6, RBC 4.45, Hgb 12.3, Hct 36.9, MCV 82.9, MCH 27.6, MCHC 33.3, RDW 14.4, Plt Count 286, MPV 9.1, Gran % 66.8, Lymph % (Auto) 23.6, [place] % (Auto) 6.8 H, Eos % (Auto) 2.5, Baso % (Auto) 0.3, Gran # 5.09, Lymph # (Auto ) 1.8, [place] # (Auto) 0.5, Eos # (Auto) 0.2, Baso # (Auto) 0.02 03/26/18 13:30: Beta HCG, Quant 61424.00 H 03/26/18 13:30: Sodium 141, Potassium 4.1, Chloride 104, Carbon Dioxide 25, Anion Gap 16, BUN 13, Creatinine 0.5 L, Est GFR ( Amer) > 60, Est GFR ( Non-Af Amer) > 60, Random Glucose 89, Calcium 9.0, Total Bilirubin 0.4, AST 22, ALT 19, Alkaline Phosphatase 62, Total Protein 7.0, Albumin 4.1, Globulin 2.9, Albumin/Globulin Ratio 1.4, Lipase 24 03/26/18 13:30: Urine Color Yellow, Urine Appearance Clear, Urine pH 6.0, Ur Specific [place] 1.025, Urine Protein Negative, Urine Glucose (UA) Negative, Urine Ketones Trace H, Urine Blood Trace-intact H, Urine Nitrate Negative, Urine Bilirubin Negative, Urine Urobilinogen 0.2, Ur Leukocyte Esterase Negative , Urine RBC 0 - 2, Urine WBC 0 - 2, Ur Epithelial Cells 1 - 3, Urine Bacteria Few - Medication Orders Current Medication Orders: Discontinued Medications Sodium Chloride (Sodium Chloride 0.9%) 1,000 mls @ 999 mls/hr IV .Q1H1M STA Stop: 03/26/18 16:13 Last Admin: 03/26/18 15:25 Dose: 999 mls/hr eMAR Start Stop Document 03/26/18 15:25 GMD (Rec: 03/26/18 15:25 GMD [id number]) Intravenous Solution Start Date 03/26/18 Start Time 15:25 End Date 03/26/18 End time 16:25 Total Infusion Time 60 Disposition/Present on Arrival - Present on Arrival Any Indicators Present on Arrival: No History of DVT/PE: No History of Uncontrolled Diabetes: No Urinary Catheter: No History of Decub. Ulcer: No History Surgical Site Infection Following: None - Disposition Have Diagnosis and Disposition been Completed?: Yes Diagnosis: Nausea, test positive Disposition: HOME/ ROUTINE Disposition Time: 17:03 Patient Plan: Discharge Condition: GOOD Discharge Instructions (ExitCare): Nausea and Vomiting, Adult (DC) Additional Instructions: Increase fluids Followup with the EDUCATION AND OUTREACH COORDINATOR within the next 2 days Return immediately if symptoms worsen persist or if new symptoms develop: High fevers, heavy bleeding, severe abdominal pain, vomiting, diarrhea, dizziness or weakness or any other concerning symptoms develop. Continue vitamins daily Prescriptions: Doxylamine/Pyridoxine HCl (B6) [Berta Salgado 10-10 mg Tablet] 2 tab PO HS #8 tab Referrals: Nicolas Andujar MD [Staff Provider] - [facility]] - Follow up with primary
[2018-03-26 17:16] VITALS: TEMP 98.8
== END 2018-03-26 17:15 | disposition home or self-care (01) ==
LOC: ED 12:52
DX: Z32.01 Encounter for pregnancy test, result positive (principal); R11.0 Nausea; Z3A.01 Less than 8 weeks gestation of pregnancy; F17.210 Nicotine dependence, cigarettes, uncomplicated
CPT/HCPCS: 80053; 81001; 83690; 84702; 85025; 87086; 96360; 99285; J7030

== ENCOUNTER 2018-04-29 01:11 | Emergency (ER) | payer MEDICAID ==
[2018-04-29 01:11] VITALS: BMI 23.4
[2018-04-29 01:41] VITALS: TEMP 98.7
--- NOTE | 2018-04-29 02:22 | ED PDOC ---
Arrival/HPI - General Chief Complaint: Female Genitourinary Time Seen by Provider: 04/29/18 02:22 Historian: Patient - History of Present Illness Narrative History of Present Illness (Text): 04/29/18 02:22 32 year old female, whose past medical history includes past miscarriage, presents to the emergency department complaining vaginal bleeding for the past 4 days. Patient is 3 months . She reports she was evaluated and discharged at [facility] and had a ultrasound done that showed a heart beat. Patient states she is bleeding uncontrollably and report large amounts of clots were noted. Patient reports abdominal cramping and back pain, but denies any fever, chills, chest pain, shortness of breath, nausea, vomiting, diarrhea, urinary symptoms, neck pain, headache, dizziness, or any other complaints. Time/Duration: Other (4 days) Symptom Onset: Gradual Symptom Course: Unchanged Activities at Onset: Light Context: Home Past Medical History - Provider Review Nursing Documentation Reviewed: Yes - Infectious Disease Hx of Infectious Diseases: None - Cardiac Hx Cardiac Disorders: No - Pulmonary Hx Respiratory Disorders: Yes Hx Asthma: Yes - Neurological Hx Neurological Disorder: No - HEENT Hx HEENT Disorder: No - Renal Hx Renal Disorder: No - Endocrine/Metabolic Hx Endocrine Disorders: No - Hematological/Oncological Hx Blood Disorders: No - Integumentary Hx Dermatological Disorder: No - Musculoskeletal/Rheumatological Hx Musculoskeletal Disorders: No - Gastrointestinal Hx Gastritis: Yes - Genitourinary/Gynecological Hx Genitourinary Disorders: No - Psychiatric Hx Psychophysiologic Disorder: No Hx Substance Use: No - Surgical History Hx Section: Yes (in 2008) - Anesthesia Hx Anesthesia: Yes Family/Social History - Physician Review Nursing Documentation Reviewed: Yes Family/Social History: No Known Family HX Smoking Status: Light Smoker < 10 Cigarettes Daily Hx Alcohol Use: No Hx Substance Use: No Allergies/Home Meds Allergies/Adverse Reactions: Allergies shellfish derived Allergy (Verified 04/29/18 01:40) ANAPHYLAXIS Home Medications: Home Meds Medication Instructions Recorded Confirmed No Known Home Med 04/29/18 04/29/18 Review of Systems - Physician Review All systems were reviewed & negative as marked: Yes - Review of Systems Constitutional: absent: Fevers, Other (Chills) Respiratory: absent: SOB Cardiovascular: absent: Chest Pain Gastrointestinal: Abdominal Pain. absent: Diarrhea, Nausea, Vomiting Genitourinary Female: Vaginal Bleeding. absent: Dysuria, Frequency, Hematuria Musculoskeletal: Back Pain. absent: Neck Pain Neurological: absent: Headache, Dizziness Physical Exam - Physical Exam Narrative Physical Exam (Text): Gen: VS reviewed, alert, well developed, well nourished, nontoxic, mild distress. ENT: normal pharynx. Eye: EOMI, PERRL. Neck: no JVD, supple, no adenopathy. CV: regular rate, regular rhythm, no rubs, no murmur, no gallops, S1, S2, pulses equal and strong. Pulm: no distress, clear to auscultation, no wheeze, no rhonchi, breath sounds equal, no rales. Abd: Mild pelvic tenderness, no guarding, no rebound, no rigidity, normal bowel sounds. Ext: no edema. Skin: good color, no rash, no cyanosis. Psych: responds appropriately to questions, normal affect. Neuro: oriented x 3, CN2-12 intact grossly, motor intact, sensation intact. Vital Signs Reviewed: Yes Vital Signs Temp Pulse Resp BP Pulse Ox 04/29/18 01:39 98.7 F 97 H 17 135/75 97 Temperature: Afebrile Blood Pressure: Normal Pulse: Regular Respiratory Rate: Normal Medical Decision Making ED Course and Treatment: 04/29/18 02:22 Impression: 32 year old female presents 3 months complaining of consent and heavy vaginal bleeding for the past 4 days. Plan: -- Labs -- Transvaginal US -- Reassess and disposition Prior Visits: Notes and results from previous visits were reviewed. 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 At this time I feel it is safe to discharge home and patient will try to make an appointment with her sand technician today. Patient understands to return to the closest hospital for recurrent heavy bleeding. - Lab Interpretations I have reviewed the lab results: Yes - RAD Interpretation Narrative RAD Interpretations (Text): EXAM: Transvaginal US SIGNED ON: 04/29/18 04:44 BY: Stephen Irvin M.D. IMPRESSION: Markedly thickened and heterogeneous, up to 4.7 cm, compatible with blood clots. Film Examiner: Radiologist - Scribe Statement The provider has reviewed the documentation as recorded by the Danny Child Provider Scribe Attestation: All medical record entries made by the Violetaibmariela were at my direction and personally dictated by me. I have reviewed the chart and agree that the record accurately reflects my personal performance of the history, physical exam, medical decision making, and the department course for this patient. I have also personally directed, reviewed, and agree with the discharge instructions and disposition. Disposition/Present on Arrival - Present on Arrival Any Indicators Present on Arrival: No History of DVT/PE: No History of Uncontrolled Diabetes: No Urinary Catheter: No History of Decub. Ulcer: No History Surgical Site Infection Following: None - Disposition Have Diagnosis and Disposition been Completed?: Yes Diagnosis: Miscarriage Disposition: HOME/ ROUTINE Disposition Time: 07:13 Patient Plan: Discharge Condition: STABLE Discharge Instructions (ExitCare): Miscarriage, Dealing With Miscarriage Additional Instructions: Follow up with your can repairer as soon as possible. Return immediately for any heavy bleeding or lightheadedness. ANGELICA CHISHOLM, thank you for letting us take care of you today. Your provider was Dr. Alejandro Blakely and you were treated for bleeding with spontaneous miscarriage. The emergency medical care you received today was directed at your acute symptoms. If you were prescribed any medication, please fill it and take as directed. It may take several days for your symptoms to resolve. Return to the Emergency Department if your symptoms worsen, do not improve, or if you have any other problems. Please contact your doctor or call one of the physicians/clinics you have been referred to that are listed on the Patient Visit Information form that is included in your discharge packet. Bring any paperwork you were given at discharge with you along with any medications you are taking to your follow up visit. Our treatment cannot replace ongoing medical care by a primary care provider outside of the emergency department. Thank you for allowing the [facility] team to be part of your care today. If you had an X-Ray or CT scan: A Radiologist will review the ED reading if any change in treatment is needed we will contact you. If you had a blood, urine, or wound culture: It will take several days for the results, if any change in treatment is needed we will contact you. If you had an STI test: It will take 48 hours for the results. Please call after 1 week if you have not heard back. Referrals: Teri Goel MD [Primary Care Provider] - Follow up with primary Forms: [facility] [facility] (Irish), WORK NOTE
[2018-04-29 02:54] LABS: BASO # 0.02 K/mm3 (0.0-2.0); BASO % 0.2 % (0.0-3.0); EOS # 0.1 (0.0-0.7); EOS % 0.9 % (1.5-5.0); GRAN # 7.9 (1.4-6.5); GRAN % 78.3 % (50.0-68.0); LYMPH # 1.7 (1.2-3.4); LYMPH % 16.5 % (22.0-35.0); MEAN CELL VOLUME 83.9 fl (80.0-105.0); MEAN CORPUSCULAR HEMOGLOBIN 28.1 pg (25.0-35.0); MEAN CORPUSCULAR HGB CONC 33.4 g/dl (31.0-37.0); MEAN PLATELET VOLUME 9.2 fl (7.0-11.0); MONO # 0.4 (0.1-0.6); MONO % 4.1 % (1.0-6.0); RBC 3.67 10^6/uL (3.5-6.1); RED CELL DISTRIBUTION WIDTH 14.1 % (11.5-14.5); WHITE BLOOD COUNT 10.1 10^3/ul (4.5-11.0)
[2018-04-29 02:57] LABS: HEMOGLOBIN 10.3 g/dL (12.0-16.0)
[2018-04-29 07:13] VITALS: BP 128/69; PULSE 72; RESP 18; O2SAT 100
--- NOTE | 2018-04-29 09:27 | US ---
Date of service: 04/29/2018 HISTORY: bleeding, early gestation, viability COMPARISON: None available. TECHNIQUE: Transabdominal and transvaginal FINDINGS: UTERUS: Measures 12.3 x 6.8 x 9.2 cm. No uterine mass. ENDOMETRIUM: Measures 37-47 mm in diameter. Heterogeneously echogenic. Cannot rule out intracavitary blood clot. No blood flow demonstrated within this thickened endometrium. No evidence of retained products of conception. CERVIX: No cervical abnormality identified. RIGHT OVARY: Not visualized LEFT OVARY: Measures 2.2 x 1.9 x 1.6 cm. No solid mass. Normal flow. FREE FLUID: No significant free fluid noted. OTHER FINDINGS: None. IMPRESSION: No intrauterine gestation identified. Markedly thickened heterogeneous endometrium. Cannot rule out intracavitary blood clot. No evidence of retained products of conception.
== END 2018-04-29 07:18 | disposition home or self-care (01) ==
LOC: ED 01:11
DX: O03.9 Complete or unspecified spontaneous abortion without complication (principal)